=== PATIENT | female | born 1995 | race African-American/Black ===

== ENCOUNTER 2023-02-12 04:50 | Emergency (ER) | payer MEDICAID ==
[~2023-02-12] VITALS: Ht 170.2 cm; Wt 75.0 kg
[2023-02-12 05:10] VITALS: O2SAT 100
[2023-02-12] MEDS ORDERED: OXYCODONE HCL/ACETAMINOPHEN 5/325MG TABLET PO ONE (06:00)
[2023-02-12] MEDS ORDERED: BACITRACIN 15GM TUBE TOP ONE (06:00)
[2023-02-12] MEDS: BACITRACIN ZINC OINT UDPKT TOP NR ×2 (06:12→07:06)
[2023-02-12] MEDS ORDERED: IBUP-2028 PO (07:18)
[2023-02-12 08:10] VITALS: BP 118/78; PULSE 70; RESP 16; TEMP 98
[2023-02-12] MEDS ORDERED: KETOROLAC 60MG/2ML VIAL IM ONE (08:15)
== END 2023-02-12 08:22 | disposition home or self-care (01) ==
LOC: ER 04:50
DX: S62.002A Unspecified fracture of navicular [scaphoid] bone of left wrist, initial encounter for closed fracture (principal); X58.XXXA Exposure to other specified factors, initial encounter; Y93.89 Activity, other specified; Y92.89 Other specified places as the place of occurrence of the external cause; Y99.8 Other external cause status
CPT/HCPCS: 29125; 73100; 73120; 81025; 99284; A4565